=== PATIENT | female | born 1990 | race Caucasian/White ===

== ENCOUNTER 2024-04-01 02:47 | Outpatient (CLI) | payer BC, SELFPAY ==
--- NOTE | 2024-04-01 | DI.US_ITS ---
Exam(s) US OB ELIUD WEIGHT EXAM: US OB ELIUD WEIGHT CLINICAL HISTORY: Normal 20wk antomy scan, -NIPT, Growth scan for marginal cord insertion. TECHNIQUE: Transabdominal obstetrical ultrasound performed. COMPARISON: US US OB 2-3 TRIMESTER from 03/23/2024 FINDINGS: Number of fetuses: 1 position: Varied throughout the examination. Placental location: There is a grade 1 anterior placenta. No evidence of previa. Four-chamber heart: Unremarkable. The lower extremity labeled tib/fib 1: The lower extremity labeled 1 was difficult to visualize in it s entirety. There is a concern for a clubfoot. The placental cord insertion appears within normal limits. IMPRESSION: 1. Single live intrauterine gestation as above. 2. Findings are concerning certain for the possibility of a clubfoot. Recommend follow-up examinatio n with [facility]. 3. A normal four-chamber heart was visualized. the placental cord insertion site was seen in is with in normal limits for location. Unexpected findings DATA REPOSITORY:
== END 2024-04-01 03:07 ==
LOC: DI 02:47
PROVIDERS: PCP Internal Medicine; Visit Provider Midwife
DX: Z34.81 Encounter for supervision of other normal pregnancy, first trimester (principal); Z3A.08 8 weeks gestation of pregnancy
CPT/HCPCS: 76816